=== PATIENT | female | born 1940 | race Caucasian/White ===

== ENCOUNTER 2016-07-17 16:55 | Emergency (ER) | payer MEDICARE ==
[~2016-07-17] VITALS: Ht 170.2 cm; Wt 77.1 kg
[2016-07-17 16:55] VITALS: BP 137/88
[2016-07-17] MEDS ORDERED: ADENOSINE 6 MG/2 ML VIAL. IV ONE ×2 (17:01→17:15)
[2016-07-17 17:19] LABS: BASO % 1 % (0-3); EOS % 1 % (0-3); HEMATOCRIT 40.5 % (36.0-47.0); HEMOGLOBIN 13.2 g/dL (12.0-15.5); LYMPH # 1.8 x10^3/uL (1.0-4.8); LYMPH % 29 % (24-48); MEAN CORPUSCULAR HEMOGLOBIN 29 pg (25-35); MEAN CORPUSCULAR HGB CONC 33 g/dL (31-37); MEAN CORPUSCULAR VOLUME 88 fL (79-100); MONO % 10 % (0-9); NEUT % 60 % (31-73); PLATELET COUNT 181 x10^3/uL (140-400); RED BLOOD COUNT 4.63 x10^6/uL (3.50-5.40); RED CELL DISTRIBUTION WIDTH 14.3 % (11.5-14.5); WHITE BLOOD COUNT 6.3 x10^3/uL (4.0-11.0)
[2016-07-17 17:41] LABS: CALCIUM 9.1 mg/dL (8.5-10.1); GFR 53.9; POTASSIUM 3.4 mmol/L (3.5-5.1)
[2016-07-17 17:46] LABS: ALBUMIN 3.8 g/dL (3.4-5.0); ALBUMIN/GLOBULIN RATIO 1.1 (1.0-1.7); TOTAL BILIRUBIN 0.6 mg/dL (0.2-1.0); TOTAL PROTEIN 7.4 g/dL (6.4-8.2)
--- NOTE | 2016-07-17 18:06 | ED.ADGEN ---
Past Medical History Past Medical History: High Cholesterol, Hypertension, Other Additional Past Medical Histor: "ELECTICAL IMPULSE D/O, SVT Past Surgical History: Other Additional Past Surgical Histo: KNEE SX TUMORS REMOVED IN BREAST Alcohol Use: Occasionally Drug Use: None Adult General Chief Complaint Chief Complaint: RAPID HEART RATE HPI HPI Patient is a 76 year old with history of SVT who presents with every onset palpitations described as rapid fast and pounding similar to previous episodes of SVT starting approximately 40 minutes ago while sitting in her backyard. Patient reports dizziness and palpitations, but denies chest pain, chest tightness shortness of breath. Patient drove herself to the emergency department. Patient's currently on calcium channel dennise for prophylaxis who was recently evaluated by her [place] river guide the past 3 weeks. Review of Systems Review of Systems Review symptoms as per history of present illness. All other review symptoms are negative. Current Medications Current Medications Current Medications Medications (Trade) Dose Ordered Sig/Aditi Start Time Stop Time Status Last Admin Dose Admin Adenosine (Adenocard) 12 mg 1X ONCE 07/17/16 17:15 07/17/16 17:16 DC 07/17/16 17:06 12 MG Allergies Allergies Allergies Coded Allergies Type Severity Reaction Last Updated Verified Sulfa (Sulfonamide Antibiotics) Allergy Intermediate "upset stomach" 08/30/13 No morphine Allergy Intermediate "makes me crazy" 08/30/13 Yes Physical Exam Physical Exam General: No acute distress, non-toxic appearance. HENT: Normocephalic, atraumatic, bilateral external ears normal, oropharynx moist, no oral exudates, nose normal. Eyes: PERRL. Neck: Normal range of motion. Cardiovascular: Tachycardic. Lungs & Thorax: Bilateral breath sounds clear to auscultation. Abdomen: Bowel sounds normal, soft, no tenderness, no masses, no pulsatile masses. Skin: Warm, dry, no erythema, no rash. Back: No tenderness. Extremities: No tenderness. Neurologic: Alert and oriented X 3, cranial nerves II through XII grossly intact , normal motor function, normal sensory function, no focal deficits noted. Psychologic: Affect normal, judgement normal, mood normal. Current Patient Data Vital Signs Vital Signs Date Time Temp Pulse Resp B/P (MAP) Pulse Ox O2 Delivery O2 Flow Rate FiO2 07/17/16 16:55 98.3 166 24 137/88 (104) 95 Room Air 98.3 Lab Values Laboratory Tests Test 07/17/16 17:02 White Blood Count 6.3 x10^3/uL (4.0-11.0) Red Blood Count 4.63 x10^6/uL (3.50-5.40) Hemoglobin 13.2 g/dL (12.0-15.5) Hematocrit 40.5 % (36.0-47.0) Mean Corpuscular Volume 88 fL (79-100) Mean Corpuscular Hemoglobin 29 pg (25-35) Mean Corpuscular Hemoglobin Concent 33 g/dL (31-37) Red Cell Distribution Width 14.3 % (11.5-14.5) Platelet Count 181 x10^3/uL (140-400) Neutrophils (%) (Auto) 60 % (31-73) Lymphocytes (%) (Auto) 29 % (24-48) Monocytes (%) (Auto) 10 % (0-9) H Eosinophils (%) (Auto) 1 % (0-3) Basophils (%) (Auto) 1 % (0-3) Neutrophils # (Auto) 3.7 x10^3uL (1.8-7.7) Lymphocytes # (Auto) 1.8 x10^3/uL (1.0-4.8) Monocytes # (Auto) 0.6 x10^3/uL (0.0-1.1) Eosinophils # (Auto) 0.0 x10^3/uL (0.0-0.7) Basophils # (Auto) 0.0 x10^3/uL (0.0-0.2) Sodium Level 142 mmol/L (136-145) Potassium Level 3.4 mmol/L (3.5-5.1) L Chloride Level 106 mmol/L (98-107) Carbon Dioxide Level 25 mmol/L (21-32) Anion Gap 11 (6-14) Blood Urea Nitrogen 14 mg/dL (7-20) Creatinine 1.0 mg/dL (0.6-1.0) Estimated GFR (Cockcroft-Gault) 53.9 BUN/Creatinine Ratio 14 (6-20) Glucose Level 175 mg/dL (70-99) H Calcium Level 9.1 mg/dL (8.5-10.1) Total Bilirubin 0.6 mg/dL (0.2-1.0) Aspartate Amino Transferase (AST) 31 U/L (15-37) Alanine Aminotransferase (ALT) 44 U/L (14-59) Alkaline Phosphatase 81 U/L (46-116) Troponin I Quantitative < 0.017 ng/mL (0.000-0.055) Total Protein 7.4 g/dL (6.4-8.2) Albumin 3.8 g/dL (3.4-5.0) Albumin/Globulin Ratio 1.1 (1.0-1.7) Laboratory Tests 07/17/16 17:02 Laboratory Tests 07/17/16 17:02 EKG EKG [EKG #1 SVT rate 162, possible lateral ischemic changes versus strain pattern. EKG #2 sinus tach, rate 109, no acute ST-T wave changes, QTC 438.] Radiology/Procedures Radiology/Procedures [Patient successfully chemically cardioverted from SVT to sinus rhythm on first attempt after receiving 12 mg of adenosine IV push. Patient remains sinus rhythm on cardiac monitor technician 1 hour area basic labs reviewed, troponin is negative. Patient asymptomatic at time of discharge and instructed to continue home medications follow-up with her whitewater river guide in 2-3 weeks. Return precautions reviewed. Course & Med Decision Making Course & Med Decision Making Pertinent Labs and Imaging studies reviewed. (See chart for details) [] Dragon Disclaimer Dragon Disclaimer This electronic medical record was generated, in whole or in part, using a voice recognition dictation system. PAM MCKEON DO July 17, 2016 18:06
--- NOTE | 2016-07-19 07:11 | EKG ---
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
--- NOTE | 2016-07-19 08:09 | EKG ---
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
== END 2016-07-17 18:20 | disposition home or self-care (01) ==
LOC: ER 18:20
DX: R00.2 Palpitations (principal); R42 Dizziness and giddiness; E78.00 Pure hypercholesterolemia, unspecified; I10 Essential (primary) hypertension; Z88.2 Allergy status to sulfonamides; Z88.5 Allergy status to narcotic agent
CPT/HCPCS: 36415; 80053; 84484; 85027; 92960; 93005; 99285; J0153; 96374; 99284-25

== ENCOUNTER 2017-11-18 09:36 | Emergency (ER) | payer MEDICARE ==
[~2017-11-18] VITALS: Ht 170.2 cm; Wt 77.1 kg
[2017-11-18] MEDS ORDERED: MECLIZINE HCL 12.5 MG TABLET. PO ONE (10:15)
[2017-11-18] MEDS ORDERED: LOSARTAN POTASSIUM 25 MG TABLET. PO SCH (10:15)
[2017-11-18] MEDS ORDERED: IV NORMAL SALINE 500ML BAG 500 ML IV ONE (10:15)
--- NOTE | 2017-11-18 10:18 | PHYS DOC ---
Past Medical History Past Medical History: Arthritis, High Cholesterol, Hypertension, Other Additional Past Medical Histor: "ELECTICAL IMPULSE D/O, SVT Past Surgical History: Other Additional Past Surgical Histo: KNEE SX TUMORS REMOVED IN BREAST, cardiac ablasion 2017 Alcohol Use: Occasionally Drug Use: None Adult General Chief Complaint Chief Complaint: DIZZY/LIGHT HEADED HPI HPI 77-year-old female presenting to the emergency department today with dizziness that started tonight. She reports turning over in bed when it began. She felt kind of wobbly. The sensation went away and she went to the restroom without difficulty but while she was sitting on the toilet she felt that the carpet was moving in front of her and felt the wobbly sensation again. She denies its worse when she stands up but does report that when she turns her head is provoked. She has a history of high blood pressure and takes losartan but didn' t take that this morning. She denies fevers chills or cough. She recently got off of a cruise and reports that it took a while to get her feet under her. Review of systems is negative for chest pain shortness of breath palpitations numbness weakness or tingling or any focal neurologic deficits. She denies vision changes. She does have a mild headache. She denies neck stiffness. All other review of systems is negative unless otherwise noted in history of present illness. ED course: 77-year-old female presenting with dizziness more consistent with vertigo. On arrival she has high blood pressure otherwise is afebrile and saturating well. On examination she is well-appearing with normal range of motion of the neck. [place]-Hallpike maneuver performed which shows a lateral nystagmus that reproduced the patient's symptoms. No skew on examination. Otherwise extraocular movements are within normal limits. Patient over she rates on head impulse testing with lateral nystagmus. Symptoms suggestive of peripheral vertigo/benign peripheral paroxysmal vertigo. Head CT and blood work obtained. Patient's losartan was given in the emergency department. Meclizine given along with [address] is unremarkable. Urinalysis suggestive of UTI. Patient was given IV Rocephin and oral antibiotics to go home with. We'll have the patient follow up with vertigo physical therapy and ENT. The patient has been examined and was not found to have an emergency medical condition. The patient was then discharged home in stable condition to follow up with their primary care physician over the next 2-3 days. They were to return if their symptoms worsened or if they were concerned for any reason. They were also instructed to return to the emergency department if they were unable to get the recommended and appropriate follow-up. [id number] discharge instructions and return precautions were given. Patient's questions were answered to their satisfaction. Patient is comfortable with plan. Review of Systems Review of Systems SEE ABOVE. Current Medications Current Medications Current Medications Medications (Trade) Dose Ordered Sig/Aditi Start Time Stop Time Status Last Admin Dose Admin Ceftriaxone Sodium 50 ml @ 100 mls/hr 1X ONCE 11/18/17 13:00 11/18/17 13:29 DC 11/18/17 13:19 100 MLS/HR Losartan Potassium (Cozaar) 25 mg DAILY 11/18/17 10:15 11/18/17 10:20 25 MG Meclizine HCl (Antivert) 25 mg 1X ONCE 11/18/17 10:15 11/18/17 10:16 DC 11/18/17 10:19 25 MG Sodium Chloride 500 ml @ 500 mls/hr 1X ONCE 11/18/17 10:15 11/18/17 11:14 DC 11/18/17 11:04 500 MLS/HR Allergies Allergies Allergies Coded Allergies Type Severity Reaction Last Updated Verified Sulfa (Sulfonamide Antibiotics) Allergy Intermediate "upset stomach" 08/30/13 No morphine Allergy Intermediate "makes me crazy" 08/30/13 Yes Physical Exam Physical Exam SEE ABOVE Constitutional: Well developed, well nourished, no acute distress, non-toxic appearance. [] HENT: Normocephalic, atraumatic, bilateral external ears normal, oropharynx moist, no oral exudates, nose normal. [] Eyes: PERRLA, EOMI, conjunctiva normal, no discharge. [] Neck: Normal range of motion, no tenderness, supple, no stridor. [] Cardiovascular:Heart rate regular rhythm, no murmur [] Lungs & Thorax: Bilateral breath sounds clear to auscultation [] Abdomen: Bowel sounds normal, soft, no tenderness, no masses, no pulsatile masses. [] Skin: Warm, dry, no erythema, no rash. [] Back: No tenderness, no CVA tenderness. [] Extremities: No tenderness, no cyanosis, no clubbing, ROM intact, no edema. [] Neurologic: Mental status: Awake oriented and alert x3 Cranial nerves: Extraocular movements intact, eyebrows aileen bilaterally, smile symmetric, uvula elevation nl, shoulder shrug intact bilaterally, tongue protrusion normal DTRs: 2+ Sensation: equal and normal in all extremities Strength: 5/5 in upper and lower extremities bilaterally Psychologic: Affect normal, judgement normal, mood normal. [] Current Patient Data Vital Signs Vital Signs Date Time Temp Pulse Resp B/P (MAP) Pulse Ox O2 Delivery O2 Flow Rate FiO2 11/18/17 10:20 80 169/71 11/18/17 09:40 97.5 16 99 Room Air 97.5 Lab Values Laboratory Tests Test 11/18/17 11:03 11/18/17 11:55 White Blood Count 7.0 x10^3/uL (4.0-11.0) Red Blood Count 4.88 x10^6/uL (3.50-5.40) Hemoglobin 14.2 g/dL (12.0-15.5) Hematocrit 41.4 % (36.0-47.0) Mean Corpuscular Volume 85 fL (79-100) Mean Corpuscular Hemoglobin 29 pg (25-35) Mean Corpuscular Hemoglobin Concent 34 g/dL (31-37) Red Cell Distribution Width 14.0 % (11.5-14.5) Platelet Count 195 x10^3/uL (140-400) Neutrophils (%) (Auto) 79 % (31-73) H Lymphocytes (%) (Auto) 12 % (24-48) L Monocytes (%) (Auto) 8 % (0-9) Eosinophils (%) (Auto) 0 % (0-3) Basophils (%) (Auto) 1 % (0-3) Neutrophils # (Auto) 5.5 x10^3uL (1.8-7.7) Lymphocytes # (Auto) 0.9 x10^3/uL (1.0-4.8) L Monocytes # (Auto) 0.5 x10^3/uL (0.0-1.1) Eosinophils # (Auto) 0.0 x10^3/uL (0.0-0.7) Basophils # (Auto) 0.0 x10^3/uL (0.0-0.2) Sodium Level 142 mmol/L (136-145) Potassium Level 4.0 mmol/L (3.5-5.1) Chloride Level 106 mmol/L (98-107) Carbon Dioxide Level 27 mmol/L (21-32) Anion Gap 9 (6-14) Blood Urea Nitrogen 14 mg/dL (7-20) Creatinine 0.9 mg/dL (0.6-1.0) Estimated GFR (Cockcroft-Gault) 60.7 Glucose Level 95 mg/dL (70-99) Calcium Level 9.1 mg/dL (8.5-10.1) Total Bilirubin 0.7 mg/dL (0.2-1.0) Direct Bilirubin 0.2 mg/dL (0.0-0.2) Aspartate Amino Transferase (AST) 27 U/L (15-37) Alanine Aminotransferase (ALT) 38 U/L (14-59) Alkaline Phosphatase 77 U/L (46-116) Troponin I Quantitative < 0.017 ng/mL (0.000-0.055) Total Protein 7.2 g/dL (6.4-8.2) Albumin 3.9 g/dL (3.4-5.0) Lipase 132 U/L (73-393) Urine Collection Type Unknown Urine Color Yellow Urine Clarity Clear Urine pH 7.0 Urine Specific [place] 1.010 Urine Protein Negative mg/dL (NEG-TRACE) Urine Glucose (UA) Negative mg/dL (NEG) Urine Ketones (Stick) Negative mg/dL (NEG) Urine Blood Negative (NEG) Urine Nitrite Positive (NEG) Urine Bilirubin Negative (NEG) Urine Urobilinogen Dipstick 0.2 mg/dL (0.2 mg/dL) Urine Leukocyte Esterase Small (NEG) Urine RBC 0 /HPF (0-2) Urine WBC 11-20 /HPF (0-4) Urine Squamous Epithelial Cells Mod /LPF Urine Bacteria Many /HPF (0-FEW) Laboratory Tests 11/18/17 11:03 Laboratory Tests 11/18/17 11:03 EKG EKG [] Radiology/Procedures Radiology/Procedures [] Course & Med Decision Making Course & Med Decision Making Pertinent Labs and Imaging studies reviewed. (See chart for details) [] Dragon Disclaimer Dragon Disclaimer This electronic medical record was generated, in whole or in part, using a voice recognition dictation system. Departure Departure Impression: Primary Impression: BPPV (benign paroxysmal positional vertigo) Additional Impressions: Vertigo UTI (urinary tract infection) Disposition: 01 HOME, SELF-CARE Condition: STABLE Referrals: DARCIE OKEEFE MD (PCP) Patient Instructions: Benign Positional Vertigo, Hypertension Additional Instructions: Thank you for allowing us to participate in your care today. Return to the emergency department you have any new or worsening symptoms, or if you are concerned for any reason. Return to emergency department if you have any new or concerning symptoms including but not limited to fever, chills, nausea, vomiting, intractable pain, any new rashes, chest pain, shortness of air , uncontrolled bleeding, difficulty breathing, and/or vision loss. Follow up with your primary care physician within 3 days. Call your Primary Doctor tomorrow and inform them of your visit today. If you do not have a primary care provider we are happy to provide you with a list of our primary care providers contact information. This condition should be evaluated by your primary care physician and any recommended consulting services for continued management within 2-3 days after discharge. If at any time, you are having difficulty getting into your primary care doctor or a specialist, return to the emergency department. Scripts Nitrofurantoin Monohyd/M-Cryst (MACROBID 100 MG CAPSULE) 100 Mg Capsule 1 CAP PO BID, #10 CAP Prov: LAURA VILLASEÑOR MD 11/18/17 Problem Qualifiers LAURA VILLASEÑOR MD Nov 18, 2017 10:18
--- NOTE | 2017-11-18 10:42 | RAD ---
CT HEAD WO CONTRAST History: Dizziness Comparison: None. Technique: Noncontrast CT imaging was performed of the head. Exposure: One or more of the following individualized dose reduction techniques were utilized for this examination: 1. Automated exposure control 2. Adjustment of the mA and/or kV according to patient size 3. Use of iterative reconstruction technique. Findings: No acute extra-axial or parenchymal hemorrhage is identified. There is no significant intra-axial mass effect, midline shift, or extra-axial fluid collection. The amin-white differentiation of the major vascular territories is preserved. The ventricles, sulci, and cisterns are within normal limits in size and configuration. The mastoid air cells and the visualized paranasal sinuses are aerated. No acute calvarial abnormality is identified. Impression: 1. No acute intracranial abnormality is identified. Electronically signed by: Tiburcio Soto MD (11/18/2017 10:39 AM) [id number]
[2017-11-18 11:20] LABS: BASO % 1 % (0-3); EOS % 0 % (0-3); HEMATOCRIT 41.4 % (36.0-47.0); HEMOGLOBIN 14.2 g/dL (12.0-15.5); LYMPH # 0.9 x10^3/uL (1.0-4.8); LYMPH % 12 % (24-48); MEAN CORPUSCULAR HEMOGLOBIN 29 pg (25-35); MEAN CORPUSCULAR HGB CONC 34 g/dL (31-37); MEAN CORPUSCULAR VOLUME 85 fL (79-100); MONO # 0.5 x10^3/uL (0.0-1.1); MONO % 8 % (0-9); NEUT # 5.5 x10^3uL (1.8-7.7); NEUT % 79 % (31-73); PLATELET COUNT 195 x10^3/uL (140-400); RED BLOOD COUNT 4.88 x10^6/uL (3.50-5.40)
[2017-11-18 11:26] LABS: CALCIUM 9.1 mg/dL (8.5-10.1); CREATININE 0.9 mg/dL (0.6-1.0); GFR 60.7
[2017-11-18 11:32] LABS: ALBUMIN 3.9 g/dL (3.4-5.0); DIRECT BILIRUBIN 0.2 mg/dL (0.0-0.2); TOTAL BILIRUBIN 0.7 mg/dL (0.2-1.0); TOTAL PROTEIN 7.2 g/dL (6.4-8.2)
[2017-11-18 12:06] LABS: BILIRUBIN,URINE NEGATIVE (NEG); CLARITY,URINE CLEAR; COLOR,URINE YELLOW; NITRITE,URINE POSITIVE (NEG); PROTEIN,URINE NEGATIVE (NEG-TRACE); UROBILINOGEN,URINE 0.2 mg/dL (0.2 mg/dL)
[2017-11-18 12:24] LABS: BACTERIA,URINE MANY /HPF (0-FEW); SQUAMOUS EPITHELIAL CELL,UR MOD /LPF
[2017-11-18 12:25] LABS: RBC,URINE 0 /HPF (0-2)
[2017-11-18] MEDS ORDERED: NITR100C62 PO (12:58)
[2017-11-18 14:00] VITALS: BP 175/79
--- NOTE | 2017-11-18 14:17 | EKG ---
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
== END 2017-11-18 14:22 | disposition home or self-care (01) ==
LOC: ER 09:36
DX: H81.10 Benign paroxysmal vertigo, unspecified ear (principal); N39.0 Urinary tract infection, site not specified; R51 Headache; R42 Dizziness and giddiness; I10 Essential (primary) hypertension; E78.00 Pure hypercholesterolemia, unspecified; Z88.5 Allergy status to narcotic agent; Z88.2 Allergy status to sulfonamides
CPT/HCPCS: 36415; 70450; 80048; 80076; 81001; 83690; 84484; 85025; 87086; 93005; 96361; 96365; 99285; J0690; J7040; J8597; 87186

== ENCOUNTER → 2019-09-26 | Outpatient (CLI) | payer MEDICARE ==
[~2019-09-26] MED LIST: AMLO2.5T5 PO; ANAS1TAB47 PO; ASCO500C PO; ASPI81TA59 PO; ATOR80TA72 PO; CALC-58 PO; CALC600T5 PO; CELE200C PO; CRAN250C PO; EZET10TA20 PO; GLUC1TAB71 PO; GUAI400T78 PO; IOHEXOL 180 MG/ML 10 ML VIAL. ONE; LOSA25TA54 PO; MELA10TA7 PO; MULT-658 PO; NITR100C62 PO; OMEG-117 PO; POTA500T5 PO; UBID100C26 PO; VITA1TAB31 PO; methylPREDNISolone ACETATE 40 MG/ML VIAL. ONE; methylPREDNISolone ACETATE 80 MG/ML VIAL. ONE
--- NOTE | 2019-09-26 15:11 | PAIN ---
DATE OF SERVICE: 09/26/2019 INITIAL CONSULTATION FOR PAIN CLINIC CHIEF COMPLAINT: Low back and bilateral lower extremity tingling and numbness. HISTORY OF PRESENT ILLNESS: The patient is a 79-year-old female who presents with history of pain, tingling and numbness in the low back and bilateral lower extremities, right essentially equal to left for about the past 2 months, not a result of any specific injury or accident that she is aware of. The patient reports it does not awaken her from sleep at night, does not affect her bowel or bladder control, does not affect her ability to walk significantly. She has had some fatigability in the lower extremities, but only moderately with more than 15-20 minutes of walking. The patient reports it is tingling and numbness from the knees down the bilateral feet as well, but not necessarily painful. The patient has tried physical therapy, she is doing some core exercises now, which seems to help with the back pain, but she stays active and is always active throughout the numbness or tingling or pain. The patient rates her disability range from 0-10, 10 being the worst, is a 1 with family home responsibilities, recreation, social activity, sexual behavior, occupation and life support activities, 2 with self-care activities. The patient did have MRI scan of the lumbar spine from 2018 showing severe spinal stenosis, spondylolisthesis at L4-L5 and mild scoliosis. The patient reports no loss of motor function again, but fatigability to lower extremities with extended activity. PAST MEDICAL HISTORY: Significant for hypertension; tachycardia, status post ablation; cigarette smoking, quit 50 years ago; history of arthritis; shingles, left lower extremity. PREVIOUS SURGERY: Include right total knee arthroplasty, tubal ligation in 1973, right knee scope, D and C in the past, breast tumor 2019 on the left and the subclavian stent placement. CURRENT MEDICATIONS: Include daily baby aspirin, calcium, cranberry, vitamin C, multivitamins, Celebrex, Zetia, Arimidex, amlodipine, losartan, Coenzyme Q10, fish oils, melatonin, vitamin D3, guaifenesin, Osteo Bi-Flex, and calcium supplements. ALLERGIES: THE PATIENT IS ALLERGIC TO SULFA. FAMILY HISTORY: Significant for heart disease. SOCIAL HISTORY: The patient does not smoke, quit many years ago; drinks alcohol, maybe 2 beers a week; does not use any illegal, illicit or recreational drugs. She is single, lives locally in [place], [place]. Reports she is currently retired. REVIEW OF SYSTEMS: The patient's review of systems is positive for those items mentioned in history of present illness. All systems reviewed and otherwise negative. It is complete, full and well documented on the patient's chart. PHYSICAL EXAMINATION: VITAL SIGNS: The patient's blood pressure 130/76, pulse 64, respirations 16, temperature 98.2 degrees Fahrenheit. Height is 5 feet 7 inches, weighs 170 pounds. GENERAL: The patient is awake, alert, oriented, appropriate, very pleasant demeanor. HEENT: Shows normocephalic, atraumatic. Extraocular movements are intact and symmetrical. Oral cavity: Mucous membranes moist and pink. Dentition is intact. NECK: Shows anterior throat supple without palpable lymphadenopathy noted. Swallow reflex symmetrical. CHEST: Shows normal on inspection. Breath sounds are clear bilaterally. HEART: Shows S1, S2 clear. No murmurs auscultated. ABDOMEN: Soft, obese, nontender, and nondistended. No palpable organomegaly is noted. No rebound or guarding demonstrated. BACK: Shows spine grossly in the midline. Normal appearing thoracic kyphosis and minor flattening of lumbar lordotic curvature. Lumbar paraspinous muscle shows symmetrical on inspection, with palpation shows some very mild tenderness only with deep palpation in the low lumbar distribution, but without asymmetry, no atrophy, hypertrophy, no trigger points. The patient has good rotational motion of lumbar spine, both laterally greater than 10 degrees right and left as well as extension greater than 10 degrees, forward flexion 45 degrees without significant increase in pain or numbness and tingling in the lower extremities. No tenderness over the spinous processes, sacrum or sacroiliac regions. EXTREMITIES: The patient's lower extremities show deep tendon reflexes at 2+ in the patellar, 1+ tendo-calcaneus tendons. Motor exam is strong with 5/5 dorsiflexion, extension, quadriceps and hamstring flexion symmetrical. Peripheral pulses are 1+ posterior tibia. No peripheral edema is noted. Lower extremities are warm and dry to touch, equal in color and appearance. Straight leg raise noted to be negative for reproduction of radicular symptoms bilaterally as well. Gaenslen's and Christiano's maneuvers are negative for reproduction of pain or discomfort as well. The patient is able to stand, stand on her toes without difficulty or loss of balance, walks with normal appearing gait, does not appear to favor the right or left lower extremity significantly, not using any assistive devices to ambulate such as canes or walkers. SKIN: Shows warm and dry, good turgor. No edema. No sores, rashes or bruising throughout. IMPRESSION: 1. This is a 79-year-old female with approximately 2-month history of increasing numbness and tingling in the lower extremities. 2. MRI scan 2018 lumbar spine as noted. 3. Hypertension. 4. Arthritis. PLAN: Options were discussed with the patient including conservative medical managements, physical therapies and interventional techniques. She would like to pursue interventional techniques. We discussed a lumbar epidural steroid injection using descriptions as well as anatomical models to describe the procedure. Risks were then discussed including, but not limited to bleeding, infection, possibility of epidural hematoma, subsequent neurological compromise, dural puncture, headaches, spinal cord and/or nerve damage, side effects of steroid medication and poor results regarding pain control. The patient understands and wished to proceed. The patient will return to clinic in approximately 2 weeks for followup, was counseled on return appointment, activity level and side effects to be aware of. DIAGNOSES: Lumbar radiculopathy with lumbar degenerative disk disease and lumbar spinal stenosis. PROCEDURE: Lumbar epidural steroid injection, translaminar approach at L4-L5 level using C-arm fluoroscopic guidance under sterile prep and drape using local anesthetic. MEDICATION INJECTED: A total of 120 mg Depo-Medrol plus 10 mL of preservative-free normal saline and 2 mL of contrast. CONDITION AT DISCHARGE: Stable. The patient tolerated procedure well, had no complications. MIKE MATHEWS MD DR: DEMETRIO/aung JOB#: [id number] / [id number] PHYLLIS Bland
== END ==
LOC: PNCL 10:26
PROVIDERS: ATTEND Anesthesiology
DX: M51.16 Intervertebral disc disorders with radiculopathy, lumbar region (principal); M48.061 Spinal stenosis, lumbar region without neurogenic claudication; I10 Essential (primary) hypertension; M19.90 Unspecified osteoarthritis, unspecified site; Z88.8 Allergy status to other drugs, medicaments and biological substances; Z79.899 Other long term (current) drug therapy
CPT/HCPCS: 62323; J1030; J1040; Q9965

== ENCOUNTER → 2020-05-20 | Outpatient (CLI) | payer MEDICARE ==
[~2020-05-20] MED LIST changes: -CALC600T5 PO; +CALC600T6 PO
--- NOTE | 2020-05-20 10:48 | PDOC ---
Progress Note - Pain Clinic Date of Service: DOS: DATE: 05/20/20 TIME: 10:13 Diagnosis: Dx: Lumbar radiculopathy with lumbar degenerative disease and lumbar spinal stenosis History or Present Illness: HPI: 80-year-old female returns to follow-up status post lumbar epidural steroid traction x1. Last seen September 26, 2019 patient reports he did very well for about 6 to 7 months after the injection the pain returning now in the low back and bilateral lower extremities. Patient reports it is noticeable with walking standing specially she first gets up from seated position better with laying down however generally does not awaken her from sleep at night. Patient reports no new motor or sensory deficits no new bowel or bladder incontinence reports the pain is in the low back bilaterally, radiating to the posterior gluteus posterior lateral thighs and anterior thighs as well. Patient rates the pain as a 7 on scale 10 is worse over the past week 3 on average 1 displaces a 3 today. Patient describes pain as cramping and stabbing in the left leg greater than right dull and aching in the feet as well as in the low back and stabbing the low back as well. Physical Exam: VS: Blood pressure is 124/66 pulse 84 respirations are 16 temperature is 97.9 F weight is 172 pounds PE: PHYSICAL EXAMINATION: GENERAL: The patient is awake, alert, oriented, appropriate, very pleasant demeanor HEENT: Shows normocephalic, atraumatic. Extraocular movements are intact and symmetrical. Oral cavity: Mucous membranes moist and pink. Dentition is intact. NECK: Shows anterior throat supple without palpable lymphadenopathy noted. Swallow reflex symmetrical. CHEST: Shows normal on inspection. Breath sounds are clear bilaterally, no rales rhonchi or wheezes auscultated. HEART: Shows S1, S2 clear. No murmurs auscultated. ABDOMEN: Soft, nontender, nondistended, obese. No palpable organomegaly is noted. BACK: Shows spine grossly in the midline. Normal-appearing cervical lordotic curvature. There is slightly increased thoracic kyphosis, some minor flattening of the lumbar lordotic curvature. Lumbar paraspinous muscles show symmetrical on inspection, on palpation shows some moderate tenderness diffusely throughout the upper, middle and lower distribution of the paraspinous muscles without specific trigger points, without radiation of pain. The patient has good rotational motion of the lumbar spine, both laterally as well as extension and flexion without significant difficulty. No tenderness over the spinous processes, sacrum or sacroiliac regions. EXTREMITIES: Lower extremities show deep tendon reflexes 2+ in the patellar and tendo calcaneus tendons. Motor exam is 5 on a scale of 5 with right dorsiflexion, extension, quadriceps and hamstring flexion and 5/5 on the left. Peripheral pulses are 1 to posterior tibial. No peripheral edema is noted bilaterally. Lower extremities are warm and dry to touch, equal in color and appearance. SKIN: Shows warm and dry, good turgor. No edema. No sores, rashes or bruising throughout. Procedure: Procedure: Options discussed with the patient. Patient chart reviews her current medication regimen updated current review of systems updated today as well. We will proceed with a first in the series lumbar epidural steroid ejections today with fluoroscopic guidance. Risks were discussed including but not limited to: Bleeding, infection, possibility of epidural hematoma and subsequent neurological compromise, dural puncture, headaches, spinal cord and/or nerve damage, side effects of steroid medication, and poor results regarding pain control. Patient understands and wished to proceed. Patient return to the clinic approximate 2 weeks for follow-up, was counseled as return appointment to level and side effects to be aware of. Medication Injected: Med Injected: Procedure is lumbar epidural steroid injection under local anesthetic using sterile prep and drape at the L4-5 level using C-arm fluoroscopic guidance in both AP and lateral views medications injected is 120 mg Depo-Medrol + 10 mL preservative-free normal saline and 2 mL contrast- condition at discharge is stable patient tolerated procedure well had no complications. Condition at Discharge: Condition at Discharge: Condition at discharge stable, patient alert procedure well and had no complications. MIKE MATHEWS MD May 20, 2020 10:48
--- NOTE | 2020-05-20 10:48 | PDOC4 ---
PROCEDURE Procedure Patient was consented for lumbar epidural steroid injection. Risks were dis cussed including but not limited to: Bleeding, infection, possibility of epidural hematoma and subsequent neurological compromise, dural puncture, headaches, spinal cord and/or nerve damage, side effects of steroid medication, and poor results regarding pain control. Patient understands and wished to proceed. Procedure is lumbar epidural steroid injection under local anesthetic using sterile prep and drape at the L4-5 level using C-arm fluoroscopic guidance in both AP and lateral views medications injected is 120 mg Depo-Medrol + 10 mL preservative-free normal saline and 2 mL contrast- condition at discharge is stable patient tolerated procedure well had no complications. MIKE MATHEWS MD May 20, 2020 10:48
== END | disposition home or self-care (01) ==
LOC: PNCL 10:07
PROVIDERS: ATTEND Anesthesiology
DX: M51.16 Intervertebral disc disorders with radiculopathy, lumbar region (principal); M48.061 Spinal stenosis, lumbar region without neurogenic claudication; Z79.82 Long term (current) use of aspirin; Z79.899 Other long term (current) drug therapy; Z88.2 Allergy status to sulfonamides; Z88.6 Allergy status to analgesic agent; Z72.89 Other problems related to lifestyle
CPT/HCPCS: 62323; J1030; J1040; Q9965; 77002